=== PATIENT | male | born 1955 | race Two or more races ===

== ENCOUNTER 2021-05-10 05:57 | Day surgery (SDC) | payer OTHER ==
[~2021-05-10 05:57] MED LIST: WALFARINA
[2021-05-10] MEDS ORDERED: PERCOCET 5-3251 EACH PO (12:16)
[2021-05-10] MEDS ORDERED: RECTICARE30 GM TOP (12:16)
== END 2021-05-10 17:10 | disposition home or self-care (01) ==
LOC: CIR.AMB 05:57
PROVIDERS: ATTEND Surgery
DX: K60.3 Anal fistula (principal); Z20.822 Contact with and (suspected) exposure to COVID-19

== ENCOUNTER 2021-09-20 05:00 | Day surgery (SDC) | payer OTHER ==
[~2021-09-20 05:00] MED LIST changes: +COZAAR25 MG PO; +PERCOCET 5-3251 EACH PO; +RECTICARE30 GM TOP
[2021-09-20] MEDS ORDERED: PERCOCET 5-3251 EACH PO (12:24)
[2021-09-20] MEDS ORDERED: RECTICARE30 GM TOP (12:24)
== END 2021-09-20 15:45 | disposition home or self-care (01) ==
LOC: CIR.AMB 05:00
PROVIDERS: ATTEND Surgery
DX: K60.3 Anal fistula (principal); L29.0 Pruritus ani; I10 Essential (primary) hypertension; Z79.82 Long term (current) use of aspirin; Z79.01 Long term (current) use of anticoagulants; Z95.2 Presence of prosthetic heart valve